=== PATIENT | male | born 1975 | race Caucasian/White ===

== ENCOUNTER 2017-10-22 16:00 | Emergency (ER) | payer BC ==
[2017-10-22 16:12] VITALS: BP 137/93
[2017-10-22] MEDS ORDERED: IBUPROFEN 800 MG TABLET PO ONE (17:04)
--- NOTE | 2017-10-22 17:15 | ER Document Report ---
ED Extremity Problem, Lower - General Chief Complaint: Foot Injury Stated Complaint: POSSIBLE STING/FOOT INJURY Time Seen by Provider: 10/22/17 16:55 Mode of Arrival: Ambulatory Information source: Patient Notes: 41-year-old male presented to ED for puncture wound to the right lateral foot. States he was [place] in the [place] when it happened not sure what gotten. States when it first happened it bled profusely but bleeding is under control at this time. Is alert and oriented respirations regular and unlabored speaking in full sentences walks with a even steady gait states he has severe pain in the right foot that is throbbing and hurting of his leg. TRAVEL OUTSIDE OF THE [place] IN LAST 30 DAYS: No - HPI Patient complains to provider of: Injury - Lateral foot, Pain, Swelling Location: Foot Occurred: Just prior to arrival Where: Outdoors, Public place Onset/Duration: Sudden, Persistent Quality of pain: Burning, Sharp, Throbbing Severity: Moderate Pain Level: 4 Context: Other - Puncture wound to right lateral foot Recent injury: Yes Associated symptoms: Other - Was punctured while walking in the ocean Exacerbated by: Movement, Walking Relieved by: Nothing - Related Data Allergies/Adverse Reactions: No Known Allergies Allergy (Unverified 10/22/17 16:04) Past Medical History - Social History Smoking Status: Never Smoker Cigarette use (# per day): No Chew tobacco use (# tins/day): No Smoking Education Provided: No Frequency of alcohol use: Social Drug Abuse: None Occupation: IT Lives with: Family Family History: Reviewed & Not Pertinent Patient has suicidal ideation: No Patient has homicidal ideation: No - Past Medical History Cardiac Medical History: Reports: None Pulmonary Medical History: Reports: None EENT Medical History: Reports: None Neurological Medical History: Reports: None Endocrine Medical History: Reports: None Renal/ Medical History: Reports: None Malignancy Medical History: Reports None GI Medical History: Reports: None Musculoskeletal Medical History: Reports Hx Musculoskeletal Trauma - Fractured clavicle Skin Medical History: Reports None Psychiatric Medical History: Reports: None Traumatic Medical History: Reports: None Infectious Medical History: Reports: None Past Surgical History: Reports: Hx Oral Surgery, Other - Removal of moles - Immunizations Immunizations up to date: Yes Review of Systems - Review of Systems Constitutional: No symptoms reported EENT: No symptoms reported Cardiovascular: No symptoms reported Respiratory: No symptoms reported Gastrointestinal: No symptoms reported Genitourinary: No symptoms reported Male Genitourinary: No symptoms reported Musculoskeletal: No symptoms reported Skin: Other Hematologic/Lymphatic: No symptoms reported Neurological/Psychological: No symptoms reported -: Yes All other systems reviewed and negative Physical Exam - Vital signs Vitals: Temp Pulse Resp BP Pulse Ox 98.7 F 94 16 137/93 H 96 10/22/17 16:11 10/22/17 16:11 10/22/17 16:11 10/22/17 16:11 10/22/17 16:11 Interpretation: Normal - General General appearance: Appears well, Alert - HEENT Head: Normocephalic, Atraumatic Eyes: Normal Pupils: PERRL - Respiratory Respiratory status: No respiratory distress Chest status: Nontender Breath sounds: Normal Chest palpation: Normal - Cardiovascular Rhythm: Regular Heart sounds: Normal auscultation Murmur: No - Abdominal Inspection: Normal Distension: No distension Bowel sounds: Normal Tenderness: Nontender Organomegaly: No organomegaly - Back Back: Normal, Nontender - Extremities General upper extremity: Normal inspection, Nontender, Normal color, Normal ROM , Normal temperature General lower extremity: Normal inspection, Nontender, Normal color, Normal ROM , Normal temperature, Normal weight bearing. No: Brock's sign - Neurological Neuro grossly intact: Yes Cognition: Normal Orientation: AAOx4 Rin Coma Scale Eye Opening: Spontaneous [place] Coma Scale Verbal: Oriented Rin Coma Scale Motor: Obeys Commands Rin Coma Scale Total: 15 Speech: Normal Motor strength normal: LUE, RUE, LLE, RLE Sensory: Normal - Psychological Associated symptoms: Normal affect, Normal mood - Skin Skin Temperature: Warm Skin Moisture: Dry Skin Color: Normal Location of irregularity: Extremities - Lateral foot puncture wound right foot Irregularity with: Swelling, Tenderness Course - Re-evaluation Re-evalutation: 10/22/17 21:20 Foot was soaked in hot water which relieved his pain. He was also treated with ibuprofen and Cipro. Patient stepped in the ocean and felt a sharp stabbing wound to his right ankle. He states he does not know how he got injured. But the puncture wound appeared to be a Stingray injury. - Vital Signs Vital signs: Temp Pulse Resp BP Pulse Ox 98.7 F 94 16 137/93 H 96 10/22/17 16:11 10/22/17 16:11 10/22/17 16:11 10/22/17 16:11 10/22/17 16:11 - Diagnostic Test Radiology reviewed: Image reviewed, Reports reviewed Discharge - Discharge Clinical Impression: puncture wound to side of foot Condition: Stable Disposition: HOME, SELF-CARE Instructions: Family Physicians / Practices Additional Instructions: Puncture Wound You have a puncture wound. Because these wounds often penetrate deeply beneath the skin, you must observe them carefully for complications. The wound has been examined for retained foreign material and for damage to tendons and nerves. The area should be rested and elevated for 24 hours. Then you can use the injured part -- if moving it is painfree. Punctures of the hand or foot may require splinting or crutches. The dressing should be changed daily until the wound is healed. Watch for signs of infection. Call the doctor immediately if redness, swelling, warmth, increasing pain, or wound drainage occur. If you develop numbness, persistent bleeding, or inability to move the injured area, please return for prompt re-evaluation. Puncture wound is probably from a stingray. They have a long diane on her tail it causes severe pain until it is soaked in hot water. He received recently from your pain with soaking it in hot water. Ciprofloxacin You have been given an antibacterial agent, ciprofloxacin (Cipro). This medicine is not related to the penicillins, sulfas, cephalosporins, or tetracyclines. It is often given to patients who are allergic to these drugs. It has been chosen for you either because other drugs are not appropriate, or because of the nature of your problem. Cipro should not be taken with antacids, as these can decrease its effectiveness. It can be taken without regard to meals. CIPRO SHOULD NOT BE TAKEN BY CHILDREN, NURSING WOMEN, OR WOMEN. Although Cipro is usually well-tolerated, common side effects can include nausea and diarrhea. Contact your doctor if you experience any unusual symptoms while on this medication, such as joint pain or swelling, shortness of breath, wheezing, faintness, or hives. Ibuprofen Ibuprofen is an excellent, safe drug for pain control. In addition, it has potent antiinflammatory effects which are beneficial, especially in the treatment of injuries, arthritis, or tendonitis. It's best to take ibuprofen with food. Persons with ulcer disease or allergy to aspirin should notify their physician of this before taking ibuprofen. Take the medication exactly as prescribed. Don't take additional doses unless instructed to do so by your doctor. If you develop wheezing, shortness of breath, hives, faintness, stomach pain, vomiting, or dark black stools, return for re-evaluation at once. FOLLOW-UP CARE: If you have been referred to a physician for follow-up care, call the physician s office for an appointment as you were instructed or within the next two days. If you experience worsening or a significant change in your symptoms, notify the physician immediately or return to the Emergency Department at any time for re-evaluation. Prescriptions: Ciprofloxacin HCl [Cipro 500 mg Tablet] 500 mg PO BID #14 tablet Forms: Elevated Blood Pressure
--- NOTE | 2017-10-22 17:27 | RADIOLOGY REPORT (SQ) ---
EXAM DESCRIPTION: FOOT RIGHT COMPLETE COMPLETED DATE/TIME: 10/22/2017 5:12 pm REASON FOR STUDY: stepped on something in ocean COMPARISON: None. NUMBER OF VIEWS: Three views. TECHNIQUE: AP, lateral and oblique radiographic images acquired of the right foot. LIMITATIONS: None. FINDINGS: MINERALIZATION: Normal. BONES: No acute fracture or dislocation. No worrisome bone lesions. JOINTS: No effusions. SOFT TISSUES: No soft tissue swelling. No foreign body. OTHER: No other significant finding. IMPRESSION: NEGATIVE STUDY OF THE RIGHT FOOT. NO RADIOGRAPHIC EVIDENCE OF ACUTE INJURY. TECHNICAL DOCUMENTATION: JOB ID: [id number] [employer]- All Rights Reserved Reading location - IP/workstation name: [email or web address]
== END 2017-10-22 17:48 | disposition home or self-care (01) ==
LOC: ER 16:00
DX: S91.331A Puncture wound without foreign body, right foot, initial encounter (principal); X58.XXXA Exposure to other specified factors, initial encounter
CPT/HCPCS: 99283